=== PATIENT | male | born 1955 | race Caucasian/White ===

== ENCOUNTER 2019-08-07 16:56 | Inpatient (IN) | payer MEDICARE ==
[~2019-08-07] VITALS: Ht 172.7 cm; Wt 158.0 kg
--- NOTE | ~2019-08-07 | HEMODYNAMI ---
PATIENT:CHIDI OLIVO MEDICAL RECORD: [id number] : 55 [address] [id number] ADMISSION DATE: 08/07/19 Generatedon:08/09/201911:15 Patient name: CHIDI OLIVO Patient #: [id number] SSN: : 1955 Date of study: 08/09/2019 Page: Of Hemodynamic Procedure Report Patient Data Patient Demographics Procedure consent was obtained First Name: CHIDI Gender: Male Last Name: GEOVANI : 1955 Middle Initial: Bonifacio Age: 64 year(s) Patient #: [id number] Race: Unknown Additional ID: [id number] Contact details Address: [address] [place] [address] State: [place] City: [place] Zip code: [address] Past Medical History Allergies: No known allergies Admission Admission Data Admission Date: 08/07/2019 Admission Time: 18:00 Room #: [facility] Height (in.): 68 BSA: 2.57 (m2) Height (cm.): 172.72 BMI: 52.3 (kg/m2) Weight (lbs.): 344 Weight (kg.): 156.04 Procedure Procedure Types Cath Procedure Peripheral Cath Diagnostic Procedure Switchboard Operator Assistant Peripheral Procedures Venography IVC/SVC Inferior Venacava Filter Procedure Description Procedure Date Procedure Date: 08/09/2019 Procedure Start Time: 10:50 Procedure Staff Name Function Douglas Baxter MD Performing Physician Kimberly Link RT Drink Box Mechanic Jailyn Melendrez RN Nurse Jan Pena RT Scrub Procedure Data Cath Procedure Fluoroscopy Diagnostic fluoroscopy Total fluoroscopy Time: 4.6 time: 4.6 min min Diagnostic fluoroscopy Total fluoroscopy dose: 475 dose: 475 mGy mGy Contrast Material Contrast Material Type Amount (ml) Isovue 300 20 Procedure Medications Medication Administration Route Dosage Heparin Flush Bag added to field 2 bags (1000units/500ml NS) Lidocaine 1% added to field 20 Versed I.V. 2 mg Fentanyl I.V. 100 mcg Benadryl I.V. 50 mg Hemodynamics Rest BSA: 2.57 (m2) O2 Consumption: Estimated: 317.57 (ml/min) O2 Consumption indexed : Estimated:123.57 (ml/min/m) Heart Rate: 88 (bpm) Snapshots Pre Cath Intra NCS Post Cath Vital Signs Time Heart Resp SPO2 etCO2 NIBP (mmHg) Rhythm Pain Sedation Rate (ipm) (%) (mmHg) Status Level (bpm) 10:34:01 70 25 99 0 186/157(183) NSR 0 (11) 10(A) , No pain 10:38:41 90 30 0 182/142(174) NSR 0 (11) 10(A) , No pain 10:43:22 95 26 26.2 190/142(155) NSR 0 (11) 10(A) , No pain 10:48:05 85 31 30 182/145(172) NSR 0 (11) 10(A) , No pain 10:52:43 113 35 100 27 181/131(144) NSR 0 (11) 10(A) , No pain 10:57:22 113 32 100 34.5 182/127(141) NSR 0 (11) 10(A) , No pain 11:01:58 111 33 100 34.5 173/139(147) NSR 0 (11) 10(A) , No pain 11:06:33 99 29 34.5 166/121(150) NSR 0 (11) 10(A) , No pain 11:11:05 94 34 29.2 159/116(138) NSR 0 (11) 10(A) , No pain Medications Time Medication Route Dose Verified Delivered Reason Notes Effe ctiveness by by 10:48:18 Heparin Flush added 2 M J Long M J Sahil used for Bag to bags MD ISLAS procedure (1000units/500ml field NS) 10:48:34 Lidocaine 1% added 20ml M J Long M J Sahil for local to vial MD ISLAS anesthetic field 10:52:04 Versed I.V. 2 mg M J Sahil Glaser for MD Aneesh PARR sedation 10:52:05 Fentanyl I.V. 100 M J Long Jailyn for mcg MD Aneesh PARR sedation 11:05:56 Benadryl I.V. 50 mg M J Sahil Glaser Per MD Aneesh PARR physician Procedure Log Time Note 9:59:26 Patient Height : 68 inches 9:59:31 Patient Weight : 344 lbs 10:00:05 Use device set IR Diagnostic 10:00:27 Micropuncture VSI 4FR kit opened to sterile field. 10:00:28 DOC .035 wire ([id number]) opened to sterile field. 10:00:29 Tegaderm 4 x 4 (1626W) opened to sterile field. 10:00:30 Sterile Angiographic Pack opened to sterile field. 10:00:31 Bag Decanter (2002S) opened to sterile field. 10:00:32 ACIST Manifold (49755) opened to sterile field. 10:00:33 ACIST Hand Control (93559) opened to sterile field. 10:00:34 ACIST Syringe (93716) opened to sterile field. 10:00:40 - 10:30:49 FILTER Paemla Jugular Vena Cava (TW439M) opened to sterile field. 10:30:52 - 10:30:56 Time tracking: Regular hours (M-F 7:00 - 5:00) 10:31:04 Plan of Care:Hemodynamics will remain stable., Cardiac rhythm will remain stable., Comfort level will be maintained., Respiratory function will remain adequate., Patient/ family verbilizes understanding of procedure., Procedure tolerated without complication., Recovers from procedure without complications.. 10:31:11 Patient received from ICU to IR Alert and oriented. Tansferred to table in Supine position. 10:31:15 Signed procedure consent form obtained from patient. 10:31:25 H&P Date Dictated: 08/09/2019 Within 30 days and on chart.. 10:31:28 Pre-procedure instructions explained to patient. 10:31:29 Pre-op teaching completed and patient verbalized understanding. 10:31:31 Family unavailable. 10:31:56 Patient NPO since Midnight. 10:32:07 Patient allergic to No known allergies 10:32:31 Vital chart was started 10:32:32 Is the patient allergic to Iodine/contrast media? No. 10:32:43 Is patient on blood thinner?Yes 10:33:02 Patient diabetic? No. 10:33:06 - 10:33:07 ----Pre-sedation anethsthesia assessment.---- 10:33:14 Previous problem with sedation/anesthesia? No ? 10:33:19 Snore? Yes 10:33:27 Sleep apnea? Yes 10:33:30 Deviated septum? No 10:33:32 Opens mouth fully? Yes 10:33:36 Sticks out tongue? Yes 10:33:42 Airway obstruction? Yes pe 10:33:47 Dentures? No ? 10:34:01 Right neck area was prepped with chlora-prep and draped in sterile fashion 10:34:05 - 10:34:19 Fire Safety Assessment: A--An alcohol-based skin anteseptic being used preoperatively., C--Open oxygen or nitrous oxide is being used. 10:36:01 3a) 45-59 Moderately reduced kidney function. 10:47:55 Baseline sample Acquired. 10:48:18 Heparin Flush Bag (1000units/500ml NS) 2 bags added to field was administered by Douglas Baxter MD; used for procedure; Verbal order read back and verified. 10:48:34 Lidocaine 1% 20ml vial added to field was administered by Douglas Baxter MD; for local anesthetic; Verbal order read back and verified. 10:49:13 Physician arrived 10:49:14 --------ALL STOP TIME OUT------ 10:49:15 Final Timeout: patient, procedure, and site verified with staff and physician. All members of the team are in agreement. 10:50:21 Procedure started. 10:50:21 Full Disclosure recording started 10:50:27 Local anesthetic to right IJ vein with Lidocaine 1% by Douglas Baxter MD.INITIAL ACCESS ONLY 10:52:04 Versed 2 mg I.V. was administered by Jailyn Melendrez RN; for sedation; Verbal order read back and verified. 10:52:05 Fentanyl 100 mcg I.V. was administered by Jailyn Melendrez RN; for sedation; Verbal order read back and verified. 10:58:27 GLIDE WIRE ANGLE 180cm ([id number]) opened to sterile field. 10:58:37 TORQUE DEVICE PLASTIC .038 ( TD01) opened to sterile field. 11:01:00 DILATOR, VESSEL 10/20 opened to sterile field. 11:03:16 [place] Jugular IVC filter was placed below renal veins. 11:05:56 Benadryl 50 mg I.V. was administered by Jailyn Melendrez RN; Per physician ; Verbal order read back and verified. 11:09:14 Procedure ended.(Physican Out) 11:09:27 Fluoroscopy time 04.60 minutes. 11:09:31 Fluoroscopy dose: 475 mGy 11:09:31 Flurop Dose total: 475 11:09:37 Contrast amount:Isovue 300 20ml. 11:10:30 Procedure and supply charges have been captured, reviewed, submitted an d are correct. 11:11:18 Report given to ICU. 11:15:30 Vital chart was stopped Device Usage Item Name Manufacture Quantity Catalog Hospital Part Current Minima l Lot# / Number Charge Number Stock Stock Serial# Code Micropuncture VSI VASCULAR 1 7266V [id number] 191248 5 VSI 4FR kit SOLUTIONS DOC .035 wire Cook Medical 1 [id number] 301706 561510 5 ([id number]) Tegaderm 4 x 3M 1 1626W 942972 777413 534348 5 4 (1626W) Sterile Cardinal 1 [id number] 676351 989723 5 Angiographic Health Pack Bag Decanter Microtek 1 2001S 705580 61042 867172 5 () Medical Inc. ACIST Acist 1 49010 738093 081200 801753 5 Manifold Medical (31127) Systems Inc ACIST Hand Acist 1 06837 756559 955911 771229 5 Control Medical (56132) Systems Inc ACIST Syringe Acist 1 14620 569999 891507 586200 20 (63340) Medical Systems Inc FILTER [place] Bard 1 [id number] 493318 328371 563791 5 Jugular Vena Cava (WK939G) GLIDE WIRE Terumo 1 YJ1367 229243 627039 822642 5 ANGLE 180cm (EJ3334) TORQUE DEVICE Seney 1 TD01 714659 445777 652056 5 PLASTIC .038 Scientific ( TD01) DILATOR, Cook Medical 1 D43598 613055 28358 696943 5 VESSEL 03/11 Signature Audit [place] Stage Time Signature Unsigned Intra-Procedure 08/09/2019 Kimberly Lnik 11:15:26 AM RT(R) [id number] [place] [address]
[2019-08-07 18:50] LABS: BASOPHILS 0.2 % (0-2); EOSINOPHILS 0 % (0-7); HEMATOCRIT 40.9 % (42.0-54.0); HEMOGLOBIN 13.6 g/dL (13.5-17.5); IMMATURE GRANULOCYTES 0.3 % (0-5); LYMPHOCYTES 15.3 % (15-50); MCH 31.7 pg (26.0-34.0); MCHC 33.3 g/dL (31.0-37.0); MCV 95.3 fL (80.0-100.0); MEAN PLATELET VOLUME 9.7 fL (7.4-10.4); MONOCYTES 5.6 % (2-11); NEUTROPHILS 78.6 % (40-80); PLATELET COUNT 284 10x3/uL (130-400); RBC 4.29 10x6/uL (4.20-6.10); RDW 14.5 % (11.5-14.5); WBC 11.5 10x3/uL (4.8-10.8)
[2019-08-07 19:03] LABS: ANION GAP 10.7 mmol/L (8-16); CALCIUM 9.4 mg/dL (8.5-10.1); CARBON DIOXIDE 28.1 mmol/L (21.0-32.0); CREATININE - SERUM 1.5 mg/dL (0.6-1.3); POTASSIUM - SERUM 4.8 mmol/L (3.5-5.1)
[2019-08-07 19:11] LABS: ALBUMIN 2.8 g/dL (3.4-5.0); BILIRUBIN - TOTAL 0.67 mg/dL (0.2-1.3); PROTEIN - SERUM 7.6 g/dL (6.4-8.2)
--- NOTE | 2019-08-07 19:16 | NUR ---
GREETED PATIENT AND INTRODUCED MYSELF HIS NURSE. PATIENT IS LAYING IN BED RESTING AT THIS TIME. PT AOX4. DENIES ANY EVIDENCE OF PAIN. PT ON 2L OF O2 VIA NC. RESPIRATIONS EVEN. NO S/S OF DISTRESS. CALL LIGHT WITHIN REACH LAYING ON LAP. PT DENIES NO FURTHER NEEDS AT THIS TIME.
[2019-08-07 19:31] VITALS: BP 126/73; BMI 52.5
[2019-08-07 20:41] LABS: ALKALINE PHOSPHATASE 79 U/L (30-120); ALT (SGPT) 48 U/L (10-68); CKMB 1.3 U/L (0.0-3.6); CREATINE KINASE 109 UL (21-232); FERRITIN 1365 ng/mL (3-244)
[2019-08-08] VITALS (12 sets, daily range): BP systolic 111–136; BP diastolic 67–101; Ht 172.7 cm; Wt 158.0 kg
--- NOTE | 2019-08-08 03:32 | NUR ---
RECEIVED REPORT FROM OFF GOING RN ON THIS PATIENT.
[2019-08-08 06:18] LABS: BASOPHILS 0.1 % (0-2); EOSINOPHILS 0 % (0-7); HEMOGLOBIN 12.4 g/dL (13.5-17.5); IMMATURE GRANULOCYTES 0.4 % (0-5); LYMPHOCYTES 17.3 % (15-50); MCH 30.8 pg (26.0-34.0); MCHC 32.6 g/dL (31.0-37.0); MCV 94.5 fL (80.0-100.0); MEAN PLATELET VOLUME 9.6 fL (7.4-10.4); NEUTROPHILS 75.2 % (40-80); PLATELET COUNT 285 10x3/uL (130-400); RBC 4.02 10x6/uL (4.20-6.10); RDW 14.8 % (11.5-14.5); WBC 9.7 10x3/uL (4.8-10.8)
[2019-08-08 06:46] LABS: ANION GAP 12.5 mmol/L (8-16); CALCIUM 8.7 mg/dL (8.5-10.1); CARBON DIOXIDE 26.6 mmol/L (21.0-32.0); CREATININE - SERUM 1.4 mg/dL (0.6-1.3); MAGNESIUM - SERUM 2.4 mg/dL (1.8-2.4); PHOSPHOROUS 3.7 mg/dL (2.5-4.9); POTASSIUM - SERUM 4.1 mmol/L (3.5-5.1)
[2019-08-08 07:10] LABS: INR 1.22 (0.85-1.17); PROTIME 15.4 SECONDS (11.6-15.0)
[2019-08-08 07:11] LABS: APTT 42.2 SECONDS (22.8-39.4)
[2019-08-08 08:36] LABS: D-DIMER-QUANTITATIVE > 20.00 ug/mLFEU (0.20-0.54)
[2019-08-08 11:18] LABS: BILIRUBIN NEGATIVE (NEGATIVE); GLUCOSE NEGATIVE (NEGATIVE); KETONE NEGATIVE (NEGATIVE); NITRITE NEGATIVE (NEGATIVE); SPECIFIC GRAVITY 1.015 (1.005-1.020); UROBILINOGEN NORMAL (NORMAL)
--- NOTE | 2019-08-08 13:55 | NUR ---
REPORT CALLED TO KAROLYN CHANG IN ICU. PT TRANSPORTED TO ICU VIA BED A/O X4. SOB 2L NC.
--- NOTE | 2019-08-08 14:53 | NUR ---
PT ARRIVED TO ICU FROM [facility]. VSS AND WNL. PT ANSWERS ALL QUESTIONS. PAGED AND OBTAINED CLARIFICATION ON LOVENOX AND XARELTO SINCE BOTH WERE ORDERED. WILL CONT TO FOLLOW POC
[2019-08-08] MEDS ORDERED: ZYLOPRIM100 MG PO (15:01)
[2019-08-08] MEDS ORDERED: COREG6.25 MG PO (15:02)
[2019-08-08] MEDS ORDERED: ALDACTONE25 MG PO ×2 (15:03→15:04)
[2019-08-08] MEDS ORDERED: LASIX40 MG PO (15:03)
[2019-08-08] MEDS ORDERED: VITAMIN C WIT1000 MG PO (15:04)
[2019-08-08] MEDS ORDERED: VITAMIN A10000 UNIT PO (15:05)
[2019-08-08] MEDS ORDERED: FISH OIL 1,0001 CA1 PO (15:05)
[2019-08-08] MEDS ORDERED: MAG-OX 400 MG400 MG PO (15:06)
[2019-08-08] MEDS ORDERED: ZINC50 MG PO (15:07)
[2019-08-08] MEDS ORDERED: VITAMIN E200 UNI1 PO (15:08)
--- NOTE | 2019-08-08 17:29 | NUR ---
PT RESTING IN BED, VSS AND WNL. NO SIGNS OF DISTRESS NOTED. BED ALARM ON. WILL CONT TO FOLLOW POC
--- NOTE | 2019-08-08 19:00 | NUR ---
REPORT RECEIVED, PT AAOX4. ASSESSMENT COMPLETED, SEE FLOWSHEET. PIV IN LEFT FORERARM, SEE IV FLOWSHEET. NO ACUTE DISTRESS NOTED AT THIS TIME, WILL CONTINUE TO MONITOR.
--- NOTE | 2019-08-08 21:00 | NUR ---
PT RESTING IN BED, PM MEDS TAKEN WITHOUT DIFFICULTY. WILL CONTINUE TO MONITOR.
--- NOTE | 2019-08-08 23:00 | NUR ---
PT RESTING QUIETLY IN BED, NO ACUTE DISTRESS NOTED. WILL CONTINUE TO MONITOR.
[2019-08-09] VITALS (22 sets, daily range): BP systolic 45–151; BP diastolic 49–111
--- NOTE | 2019-08-09 01:00 | NUR ---
PT RESTING IN BED, NO NEEDS VOICED AT THIS TIME.
--- NOTE | 2019-08-09 02:54 | NUR ---
RECEIVED ORDERS FROM NIMESH ESPINOZA APN TO HOLD ALL FLUTTER VALVE AND INCENTIVE SPIROMETRY TREATMENTS AT THIS TIME.
[2019-08-09 04:54] LABS: BASOPHILS 0.2 % (0-2); EOSINOPHILS 0 % (0-7); HEMATOCRIT 37.4 % (42.0-54.0); HEMOGLOBIN 11.9 g/dL (13.5-17.5); IMMATURE GRANULOCYTES 0.3 % (0-5); LYMPHOCYTES 17.2 % (15-50); MCH 30.7 pg (26.0-34.0); MCHC 31.8 g/dL (31.0-37.0); MCV 96.4 fL (80.0-100.0); MEAN PLATELET VOLUME 9.5 fL (7.4-10.4); MONOCYTES 7.5 % (2-11); NEUTROPHILS 74.8 % (40-80); PLATELET COUNT 293 10x3/uL (130-400); RBC 3.88 10x6/uL (4.20-6.10); RDW 14.8 % (11.5-14.5); WBC 9.2 10x3/uL (4.8-10.8)
--- NOTE | 2019-08-09 05:00 | NUR ---
PT RESTING COMFORTABLY IN BED, NO ACUTE DISTRESS NOTED. WILL CONTINUE TO MONITOR.
[2019-08-09 05:13] LABS: ANION GAP 11.1 mmol/L (8-16); CARBON DIOXIDE 26.9 mmol/L (21.0-32.0); CREATININE - SERUM 1.5 mg/dL (0.6-1.3); MAGNESIUM - SERUM 2.2 mg/dL (1.8-2.4); PHOSPHOROUS 3.6 mg/dL (2.5-4.9)
[2019-08-09 05:42] LABS: APTT 64.7 SECONDS (22.8-39.4); INR 1.75 (0.85-1.17); PROTIME 20.2 SECONDS (11.6-15.0)
--- NOTE | 2019-08-09 07:38 | NUR ---
PT RESTING IN BED, VSS AND WNL. NO SIGNS OF DISTRESS NOTED. WILL CONT TO FOLLOW POC
--- NOTE | 2019-08-09 10:14 | NUR ---
IR IN ROOM TO TAKE PT TO PLACE IVC CATHETER. WILL CONTINUE TO MONITOR
--- NOTE | 2019-08-09 13:00 | NUR ---
DR ARMENTA AT BEDSIDE. UPDATE GIVEN. NO NEW ORDERS.
--- NOTE | 2019-08-09 13:45 | NUR ---
DR BELTRAN AT BEDSIDE. UPDATE GIVEN. WAITING FOR DR TIDWELL TO GIVE THE OKAY BEFORE TRANSFER TO FLOOR
--- NOTE | 2019-08-09 14:45 | NUR ---
DR DEVIN BELL. ORDER RECEIVED TO TRANSFER PT OUT TO [facility] 2.
--- NOTE | 2019-08-09 16:22 | MORECARE ---
CASE MANAGEMENT DISCHARGE SUMMARY PATIENT: CHIDI OLIVO UNIT: [id number] ADM DATE: 08/07/19 AGE: 64 : 55 SEX: M ROOM/BED: D.2313 AUTHOR: GIBRAN MURGUIA PHYSICIAN: REFERRING PHYSICIAN: ALFREDO MEJIAS MD DATE OF SERVICE: 08/09/19 Discharge Plan Patient Name: CHIDI OLIVO Facility: [facility]:[place] : 1955 Planned Disposition: Anticipated Discharge Date: Discharge Date: Expected LOS: Initial Reviewer: [email or web address] Initial Review Date: 08/09/2019 Generated: 08/09/19 5:22 pm Patient Name: CHIDI OLIVO Page 66688 at 1622 All edits/amendments must be made on the electronic document DICTATION DATE: 08/09/191621 SUPERVISOR PORCELAIN DEPARTMENT: GORDON 08/09/191621 RPT#: [id number] DC DATE: STATUS: ADM IN [facility] [address] [place] [address] END OF REPORT
--- NOTE | 2019-08-09 16:31 | MORECARE ---
CASE MANAGEMENT DISCHARGE SUMMARY PATIENT: CHIDI OLIVO UNIT: [id number] ADM DATE: 08/07/19 AGE: 64 : 55 SEX: M ROOM/BED: D.2313 AUTHOR: SHANTALDOC PHYSICIAN: REFERRING PHYSICIAN: ALFREDO MEJIAS MD DATE OF SERVICE: 08/09/19 Discharge Plan Patient Name: CHIDI OLIVO Facility: [facility]:[place] : 1955 Planned Disposition: Anticipated Discharge Date: Discharge Date: Expected LOS: Initial Reviewer: [email or web address] Initial Review Date: 08/09/2019 Generated: 08/09/19 5:31 pm Comments DCP- Discharge Planning Updated by [email or web address]: Fariba Mario on 08/09/19 3:[address] Patient Name: CHIDI OLIVO Admission Status: Elective Accout number: [id number] Admission Date: 08-07-2019 : 1955 Admission Diagnosis: Attending: ALFREDO MEJIAS Current LOS: 2 Anticipated DC Date: Planned Disposition: Primary Insurance: [employer] ADV Discharge Planning Comments: CM met with patient after explaining CM role and obtaining verbal consent. Patient lives at home with his Mala where he is independent with his care and plans to return there upon discharge. Patient feels this would be a safe discharge. CM discussed availability / needs of home health and medical equipment. Patient denies any discharge needs at this time. Patient states he will have his family drive him home upon discharge. CM will continue to follow and assist as needed with discharge planning / needs. Solar Photovoltaic Designer: Fariba Mario DCPIA - Discharge Planning Initial Assessment Updated by [email or web address]: Fariba Mario on 08/09/19 4:26 pm * Is the patient Alert and Oriented? Yes * PCP [facility]ESSA * [facility]acy [facility] * Preadmission Environment Home with Family * ADLs Independent * Equipment CPAP * List name and contact numbers for known caregivers / representatives who currently or will assist patient after discharge: MALA MURILLO - SPOUSE - [phone] OR [phone] * Verbal permission to speak to the caregivers and representatives has been obtained from the patient. Yes * Community resources currently utilized None * Additional services required to return to the preadmission environment? No * Can the patient safely return to the preadmission environment? Yes * Has this patient been hospitalized within the prior 30 days at any hospital? No Last DP export: 08/09/19 3:22 p Patient Name: CHIDI OLIVO Page 56252 at 1631 All edits/amendments must be made on the electronic document DICTATION DATE: 08/09/19 163 BRIQUETTER OPERATOR: GORDON 08/09/19 1631 RPT#: [id number] DC DATE: STATUS: ADM IN [facility] [address] [place] [address] END OF REPORT
--- NOTE | 2019-08-09 19:30 | NUR ---
PT A/OX4, WATCHING TV WITH NO C/O, LEFT PIV INTACT WITH NS @ 50 CC/HR, URINAL IN REACH AT BEDSIDE, NO DISTRESS NOTED, WILL CONT TO MONITOR
[2019-08-10] VITALS (11 sets, daily range): BP systolic 113–140; BP diastolic 66–101
[2019-08-10 03:16] LABS: BASOPHILS 0.2 % (0-2); EOSINOPHILS 0 % (0-7); HEMOGLOBIN 13.1 g/dL (13.5-17.5); IMMATURE GRANULOCYTES 0.3 % (0-5); LYMPHOCYTES 11.4 % (15-50); MCH 30.9 pg (26.0-34.0); MCV 96.7 fL (80.0-100.0); MEAN PLATELET VOLUME 9.4 fL (7.4-10.4); MONOCYTES 6.9 % (2-11); NEUTROPHILS 81.2 % (40-80); PLATELET COUNT 322 10x3/uL (130-400); RBC 4.24 10x6/uL (4.20-6.10); RDW 14.5 % (11.5-14.5); WBC 10.5 10x3/uL (4.8-10.8)
[2019-08-10 03:29] LABS: ANION GAP 11.5 mmol/L (8-16); CALCIUM 8.8 mg/dL (8.5-10.1); CARBON DIOXIDE 28.9 mmol/L (21.0-32.0); CREATININE - SERUM 1.7 mg/dL (0.6-1.3); MAGNESIUM - SERUM 2.2 mg/dL (1.8-2.4); PHOSPHOROUS 3.6 mg/dL (2.5-4.9); POTASSIUM - SERUM 4.4 mmol/L (3.5-5.1)
[2019-08-10 05:08] LABS: HAPTOGLOBIN 274 mg/dL (32-363)
--- NOTE | 2019-08-10 07:00 | NUR ---
RECEIVED BEDSIDE REPORT ON PATIENT AND ASSUMED CARE. PATIENT ALERT AND ORIENTED X 4, CM - A-FIB RATE IN 80S, BBS - CLEAR BUT DIMINISHED IN THE BASES, O2 VIA NC AT 2 LPM, WITH SPO2 AT 100%. COUGHING UP BROWN SPUTUM. GIVEN SPUTUM CUP FOR COLLECTION OF SPUTUM CULTURE. 20 GA IV TO LEFT FA INFUSING NS AT 50 ML/HR. NO S/S OF INFILTRATION. HEAD TO TOE ASSESSMENT COMPLETED.
--- NOTE | 2019-08-10 07:50 | NUR ---
PATIENT GIVEN BREAKFAST TRAY AND MORNING MEDS PER MAR.
--- NOTE | 2019-08-10 08:45 | NUR ---
PATEINT ATE APPROXIMATELY 90% OF HIS BREAKFAST. VSS. NO NEEDS AT THIS TIME.
--- NOTE | 2019-08-10 09:40 | NUR ---
PATIENT GIVEN MORNING MEDS PER JUL. SPUTUM CULTURE COLLECTED AND SENT TO LAB. PATIENT VOIDS 375 ML OF RAVI CLEAR URINE. VSS. NO NEEDS AT THIS TIME.
--- NOTE | 2019-08-10 10:02 | NUR ---
Nutrition follow-up: In ICU, isolation; Covid-19 pending Diet: Low sodium PO intake ~100% of breakfast Labs reviewed Wt: 348# RDN following.
--- NOTE | 2019-08-10 11:00 | NUR ---
PATIENT WATCHING TV, VSS. NO NEEDS AT THIS TIME.
[2019-08-10 11:08] LABS: ACLA - IGG AB 13 GPL U/mL (0-14); ACLA - IGM AB <9 MPL U/mL (0-12)
--- NOTE | 2019-08-10 12:32 | NUR ---
PATIENT ATE 100% OF LUNCH.
--- NOTE | 2019-08-10 13:16 | NUR ---
PATIENT RESTING QUIETLY, VSS.
--- NOTE | 2019-08-10 15:17 | NUR ---
PATIENT AWAKE AND ALERT, WATCHING TV. VSS. NO NEEDS AT THIS TIME.
--- NOTE | 2019-08-10 16:27 | NUR ---
PATIENT REFUSED BATH, STATES WANTS TO TAKE A SHOWER.
--- NOTE | 2019-08-10 19:30 | NUR ---
PT A/OX4, TALKING ON PHONE, LUNGS CLEAR, LEFT PIV INTACT WITH NS @ 50 CC/HR, UINAL IN REACH AT BEDSIDE, NO C/O AT THIS TIME, VITALS STABLE
[2019-08-11 03:00] VITALS: BP 107/82
[2019-08-11 04:01] LABS: BASOPHILS 0.3 % (0-2); EOSINOPHILS 0 % (0-7); HEMATOCRIT 38.7 % (42.0-54.0); HEMOGLOBIN 12.3 g/dL (13.5-17.5); IMMATURE GRANULOCYTES 0.3 % (0-5); LYMPHOCYTES 15.8 % (15-50); MCHC 31.8 g/dL (31.0-37.0); MCV 97.5 fL (80.0-100.0); MEAN PLATELET VOLUME 9.1 fL (7.4-10.4); NEUTROPHILS 73.6 % (40-80); PLATELET COUNT 308 10x3/uL (130-400); RBC 3.97 10x6/uL (4.20-6.10); RDW 14.4 % (11.5-14.5); WBC 7.9 10x3/uL (4.8-10.8)
[2019-08-11 04:14] LABS: ANION GAP 11.1 mmol/L (8-16); CALCIUM 8.2 mg/dL (8.5-10.1); CREATININE - SERUM 1.5 mg/dL (0.6-1.3); MAGNESIUM - SERUM 1.9 mg/dL (1.8-2.4); PHOSPHOROUS 3.9 mg/dL (2.5-4.9); POTASSIUM - SERUM 4.1 mmol/L (3.5-5.1)
[2019-08-11 07:00] VITALS: BP 125/96
--- NOTE | 2019-08-11 08:44 | NUR ---
PPE DONNING PER POLICY, MEAL TRAY PROVIDED. PT EATING BREAKFAST WITH OUT DIFFICULTY. VSS. DENIES NEEDS OTHERWISE AT PRESENT TIME.
--- NOTE | 2019-08-11 10:32 | NUR ---
PT RESTING QUIETLY, VSS.
[2019-08-11 11:00] VITALS: BP 100/61
[2019-08-11 11:08] LABS: PROTEIN S - FREE 125 % (57-157); PROTEIN S - FREE 96 % (57-157); PROTEIN S - FUNCTIONAL 130 % (63-140); PROTEIN S - TOTAL 116 % (60-150); PROTEIN S - TOTAL 123 % (60-150)
--- NOTE | 2019-08-11 12:22 | NUR ---
MEAL TRAY PROVIDED AND PT FEEDS SELF WITH DIFFICULTY. DR TIDWELL HERE ON ROUNDS.
--- NOTE | 2019-08-11 14:39 | NUR ---
BATH AND LINENS CHANGED.
[2019-08-11 15:00] VITALS: BP 141/93
--- NOTE | 2019-08-11 17:19 | NUR ---
MEAL TRAY PROVIDED AND PT IS EATING DINNER. NO C/O AT PRESENT.
--- NOTE | 2019-08-11 19:54 | NUR ---
RECEIVED UP IN BED WITH EYES OPEN. ALERT AND ORIENTED X4. UP AD JUAREZ TO B/R. DSG TO RIGHT SODE OF NECK D/T IVC FILTER PLACEMENT. O2 @ 2 LITERS PER N/C. TELEMETRY IN PLACE. DENIES ANY NEEDS AT THIS TIME.
[2019-08-11 20:47] VITALS: BP 108/73
[2019-08-11 23:35] VITALS: BP 115/89
[2019-08-12 05:18] VITALS: BP 107/66
[2019-08-12 06:05] LABS: BASOPHILS 0.2 % (0-2); EOSINOPHILS 0 % (0-7); HEMATOCRIT 38.2 % (42.0-54.0); HEMOGLOBIN 12.1 g/dL (13.5-17.5); IMMATURE GRANULOCYTES 0.2 % (0-5); LYMPHOCYTES 24.2 % (15-50); MCH 30.6 pg (26.0-34.0); MCHC 31.7 g/dL (31.0-37.0); MCV 96.7 fL (80.0-100.0); MEAN PLATELET VOLUME 9.2 fL (7.4-10.4); MONOCYTES 9.8 % (2-11); NEUTROPHILS 65.6 % (40-80); PLATELET COUNT 300 10x3/uL (130-400); RBC 3.95 10x6/uL (4.20-6.10); RDW 14.4 % (11.5-14.5); WBC 6.5 10x3/uL (4.8-10.8)
[2019-08-12 06:33] LABS: ALBUMIN 2.5 g/dL (3.4-5.0); ANION GAP 11.7 mmol/L (8-16); BILIRUBIN - TOTAL 0.66 mg/dL (0.2-1.3); CALCIUM 8.5 mg/dL (8.5-10.1); CARBON DIOXIDE 27.2 mmol/L (21.0-32.0); CREATININE - SERUM 1.5 mg/dL (0.6-1.3); MAGNESIUM - SERUM 1.9 mg/dL (1.8-2.4); PHOSPHOROUS 3.3 mg/dL (2.5-4.9); POTASSIUM - SERUM 3.9 mmol/L (3.5-5.1); PROTEIN - SERUM 6.6 g/dL (6.4-8.2)
[2019-08-12 07:08] LABS: HEXAGONAL PHASE PHOS 9 sec (0-11); LUPUS - INTERPRETATION Comment: (()); LUPUS - THROMBIN TIME 18.6 sec (0.0-23.0); LUPUS - dRVVT 82.5 sec (0.0-47.0); PTT-LA 68.9 sec (0.0-51.9); PTT-LA MIX 61.3 sec (0.0-48.9)
[2019-08-12 08:15] VITALS: BP 121/82
--- NOTE | 2019-08-12 08:30 | NUR ---
PT ALERT AND ORIENTED. DENIES NEEDS OR PAIN AT THIS TIME. RR EVEN AND UNLABORED ON RA. PHONE WITHIN REACH. ASSESSMENT COMPLETE AND CHARTED. BED IN LOWEST POSITION. CALL LIGHT WITHIN REACH. WILL CONTINUE TO MONITOR.
[2019-08-12 11:17] VITALS: BP 126/94
[2019-08-12 12:08] LABS: PROTEIN C - ANTIGEN 69 % (60-150); PROTEIN C - FUNCTIONAL 86 % (73-180)
--- NOTE | 2019-08-12 13:21 | NUR ---
I have reviewed this patient and I concur with the Shift Assessment completed by the Licensed Practical Nurse today this shift.
[2019-08-12] MEDS ORDERED: K-DUR20 MEQ PO (13:45)
[2019-08-12] MEDS ORDERED: CLINDAMYCIN HC300 MG PO (14:04)
[2019-08-12] MEDS ORDERED: LEVOFLOXACIN500 MG PO (14:05)
[2019-08-12] MEDS ORDERED: XARELTO15 MG PO (14:37)
--- NOTE | 2019-08-12 17:38 | NUR ---
PT LEFT VIA WHEELCHAIR WITH COVID-19 PRECAUTIONS. D/C INSTRUCTIONS REVIEWED, VERBALIZED UNDERSTANDING AND NO FURTHER QUESTIONS AT THIS TIME. LEFT WITH ALL BELONGINGS.
--- NOTE | 2019-08-14 08:32 | MORECARE ---
CASE MANAGEMENT DISCHARGE SUMMARY PATIENT: CHIDI OLIVO UNIT: [id number] ADM DATE: 08/07/19 AGE: 64 : 55 SEX: M ROOM/BED: D.3797 AUTHOR: GIBRAN MURGUIA PHYSICIAN: REFERRING PHYSICIAN: ALFREDO MEJIAS MD DATE OF SERVICE: 08/14/19 Discharge Plan Patient Name: CHIDI OLIVO Facility: [facility]:[place] : 1955 Planned Disposition: Home Anticipated Discharge Date: 08/12/19 Discharge Date: 08/12/2019 Expected LOS: 5 Initial Reviewer: [email or web address] Initial Review Date: 08/09/2019 Generated: 08/14/19 9:31 am DCP- Discharge Planning Updated by [email or web address]: Fariba Mario on 08/09/19 3:[address] Patient Name: CHIDI OLIVO Admission Status: Elective Accout number: [id number] Admission Date: 08-07-2019 : 1955 Admission Diagnosis: Attending: ALFREDO MEJIAS Current LOS: 2 Anticipated DC Date: Planned Disposition: Primary Insurance: [facility] ADV Discharge Planning Comments: CM met with patient after explaining CM role and obtaining verbal consent. Patient lives at home with his Mala where he is independent with his care and plans to return there upon discharge. Patient feels this would be a safe discharge. CM discussed availability / needs of home health and medical equipment. Patient denies any discharge needs at this time. Patient states he will have his family drive him home upon discharge. CM will continue to follow and assist as needed with discharge planning / needs. Contract Agent: Fariba Mario DCPIA - Discharge Planning Initial Assessment Updated by [email or web address]: Fariba Mario on 08/09/19 4:26 pm * Is the patient Alert and Oriented? Yes * PCP VANESSA * [facility] * Preadmission Environment Home with Family * ADLs Independent * Equipment CPAP * List name and contact numbers for known caregivers / representatives who currently or will assist patient after discharge: MALA MURILLO - SPOUSE - [phone] [place] [phone] * Verbal permission to speak to the caregivers and representatives has been obtained from the patient. Yes * Community resources currently utilized None * Additional services required to return to the preadmission environment? No * Can the patient safely return to the preadmission environment? Yes * Has this patient been hospitalized within the prior 30 days at any hospital? No Last DP export: 08/09/19 3:31 p Patient Name: CHIDI OLIVO Page 00851 at 0832 All edits/amendments must be made on the electronic document DICTATION DATE: 08/14/19830 COIN MACHINE COLLECTOR SUPERVISOR: GORDON 08/14/19830 RPT#: [id number] DC DATE:08/12/19 STATUS: DIS IN [facility] [address] [place] [address] END OF REPORT
[2019-08-14 14:08] LABS: FACTOR II DNA ANALYSIS Negative (())
== END 2019-08-12 17:40 | disposition home or self-care (01) | DRG 166 ==
LOC: D.M2 16:56 → D.ICU 18:00 → D.M2 08-11 18:45
PROVIDERS: Internal Medicine Pulmonary Disease; Radiology Vascular & Interventional Radiology; ADMIT Emergency Medicine; ATTEND Emergency Medicine
PROC: 06H03DZ Insertion of Intraluminal Device into Inferior Vena Cava, Percutaneous Approach (ICD-10-PCS; principal; 2019-08-09 10:20)
DX: I26.99 Other pulmonary embolism without acute cor pulmonale (principal); J18.9 Pneumonia, unspecified organism; I48.20 Chronic atrial fibrillation, unspecified; Z68.43 Body mass index [BMI] 50.0-59.9, adult; I82.402 Acute embolism and thrombosis of unspecified deep veins of left lower extremity; I13.0 Hypertensive heart and chronic kidney disease with heart failure and stage 1 through stage 4 chronic kidney disease, or unspecified chronic kidney disease; J45.909 Unspecified asthma, uncomplicated; N18.9 Chronic kidney disease, unspecified; E66.01 Morbid (severe) obesity due to excess calories; I50.9 Heart failure, unspecified; I50.810 Right heart failure, unspecified; Z86.73 Personal history of transient ischemic attack (TIA), and cerebral infarction without residual deficits; Z20.828 Contact with and (suspected) exposure to other viral communicable diseases

== ENCOUNTER → 2020-01-18 11:39 | Outpatient (CLI) | payer MEDICARE ==
[2019-08-08 16:49] VITALS: BMI 52.4
[~2020-01-18 11:39] MED LIST: ALDACTONE25 MG PO; CLINDAMYCIN HC300 MG PO; COREG6.25 MG PO; FISH OIL 1,0001 CA1 PO; K-DUR20 MEQ PO; LASIX40 MG PO; LEVOFLOXACIN500 MG PO; MAG-OX 400 MG400 MG PO; VITAMIN A10000 UNIT PO; VITAMIN C WIT1000 MG PO; VITAMIN E200 UNI1 PO; XARELTO15 MG PO; ZINC50 MG PO; ZYLOPRIM100 MG PO
== END | disposition home or self-care (01) ==
LOC: D.LAB 11:39
PROVIDERS: ATTEND Internal Medicine Pulmonary Disease
DX: J44.9 Chronic obstructive pulmonary disease, unspecified (principal)

== ENCOUNTER → 2020-01-21 14:24 | Outpatient (CLI) | payer MEDICARE ==
[2019-08-08 16:49] VITALS: BMI 52.4
== END | disposition home or self-care (01) ==
LOC: D.RAD 09-11 14:45 → D.RT 09-11 15:00 → D.RAD 10-19 14:45
PROVIDERS: ATTEND Internal Medicine Pulmonary Disease
DX: Z09 Encounter for follow-up examination after completed treatment for conditions other than malignant neoplasm (principal)